=== PATIENT | female | born 1965 | race Caucasian/White ===

== ENCOUNTER 2020-06-25 14:47 | Outpatient (REF) | payer BC, SELFPAY ==
[2020-06-25 19:17] LABS: Abs Immature Grans 0.01 10^3/uL (0.0-0.06); Absolute Basophil Count 0.08 10^3/uL (0.0-0.2); Absolute Eosinophil Count 0.19 10^3/uL (0.0-0.7); Absolute Lymphocyte Count 1.57 10^3/uL (1.2-3.4); Absolute Monocyte Count 0.58 10^3/uL (0.1-0.8); Absolute Neutrophil Count 4.29 10^3/uL (1.2-6.7); Basophils % 1.2; Eosinophils % 2.8; HCT 41.3 % (36.0-46.0); Immature Grans % 0.1; Lymphocytes % 23.4; MCH 30.5 pg (27.0-33.0); MCHC 33.9 % (32.0-36.0); Monocytes % 8.6; Neutrophils % 63.9; Nucleated RBC 0 %; Platelet Count 453 10^3/uL (130-400); RBC 4.59 10^6/uL (3.93-5.22); RDW-SD 39.1 fL; WBC 6.72 10^3/uL (4.4-10.8)
[2020-06-25 19:49] LABS: ALT 46 U/L (14-59); AST 20 U/L (15-37); Albumin 4.1 g/dL (3.4-5.0); Alkaline Phosphatase 100 U/L (46-116); Anion Gap 7.4 mmol/L (3-11); BUN 21 mg/dL (7-18); Bilirubin, Total 0.4 mg/dL (0.2-1.0); CO2 27.6 mmol/L (21.0-32.0); CREATININE 0.74 mg/dL (0.55-1.02); Calcium 9.1 mg/dL (8.5-10.1); Calculated LDL 189 mg/dL (<100); Chloride 102 mmol/L (98-107); Cholesterol 283 mg/dL (<200); Glucose 100 mg/dL (74-106); HDL Cholesterol 31 mg/dL (40-60); Potassium 4.6 mmol/L (3.5-5.1); Sodium 137 mmol/L (136-145); TSH (W/Ref FT4) 1.95 uIU/mL (0.36-3.74); Total Protein 7.9 g/dL (6.4-8.2); Triglyceride 318 mg/dL (<150)
== END 2020-06-25 15:07 ==
LOC: NCHCN 14:47
PROVIDERS: Visit Provider Physician Assistant
DX: E78.5 Hyperlipidemia, unspecified (principal); E03.9 Hypothyroidism, unspecified; I10 Essential (primary) hypertension
CPT/HCPCS: 80053; 80061; 84443; 85025

== ENCOUNTER 2021-09-03 11:35 | Outpatient (REF) | payer BC, SELFPAY ==
--- NOTE | 2021-09-03 15:55 | PAPFT_PTH ---
PATIENT: [place] Sarabia LOC: [facility] [id number] AGE/SX: 56/F ROOM: RE09/03/[address]: Dolores Lay : 1965 BED: DIS: 09/03/2021 SPEC #: [id number] RECD: 09/04/21 12:39 STATUS: RAFA REQ #: [id number] DAVID: 09/03/21 15:[address]: Dolores Lay DEPT: [facility] Cytology RECD BY: Lynne Melendez Tissues: 1 - CX/ENDOCX FOR PAP SMEARS Procedures: PAP THIN PREP/UVM Screening HPV DNA PROBE Comments: [id number]
== END 2021-09-03 11:36 | disposition home or self-care (01) ==
LOC: NCHCN 11:35
PROVIDERS: Visit Provider Physician Assistant
DX: Z12.4 Encounter for screening for malignant neoplasm of cervix (principal); Z11.51 Encounter for screening for human papillomavirus (HPV)
CPT/HCPCS: 88142; 87624

== ENCOUNTER 2022-07-28 10:52 | Outpatient (REF) | payer BC, SELFPAY ==
[2022-07-28 19:10] LABS: Anion Gap 5.2 mmol/L (3-11); BUN 16 mg/dL (7-18); CO2 28.8 mmol/L (21.0-32.0); CREATININE 0.8 mg/dL (0.55-1.02); Calcium 8.8 mg/dL (8.5-10.1); Chloride 107 mmol/L (98-107); Estimated GFR 86.96 (mL/min/1.73m2); Glucose 105 mg/dL (74-106); Potassium 4.6 mmol/L (3.5-5.1); Sodium 141 mmol/L (136-145); TSH (W/Ref FT4) 0.62 uIU/mL (0.36-3.74)
== END 2022-07-28 10:53 | disposition home or self-care (01) ==
LOC: NCHCN 10:52
PROVIDERS: Visit Provider Physician Assistant
DX: I10 Essential (primary) hypertension (principal); E03.9 Hypothyroidism, unspecified
CPT/HCPCS: 80048; 84443

== ENCOUNTER 2023-01-27 14:43 | Inpatient (IN) | payer BC, SELFPAY ==
[2023-01-27] VITALS (35 sets, daily range): BP systolic 122–170; BP diastolic 77–98; PULSE 50–98; RESP 13–23; TEMP 36.6–36.9; O2SAT 96–100
--- NOTE | 2023-01-27 14:45 | RT.EKG_ITS ---
APPROVED REPORT Exam: Resting ECG Reason for Exam: chest pain Patient Location: E HR:62 bpm ECG Measurements Heart Rate 62 AXIS NE 49 P 53 QRSd 110 QRS 16 QT 390 T 3 QTc 396 Conclusion Sinus rhythm...normal P axis, V-rate 60- 99 Probable lateral infarct, old...Q>35mS, abnormal ST-T, V5-6 I aVL Physician: no stemi
--- NOTE | 2023-01-27 14:45 | DI.CT_ITS ---
Exam(s) CT BRAIN NECK CTA EXAM: CT BRAIN NECK CTA CLINICAL HISTORY: atypical stroke like sympt. right facial droop. TECHNIQUE: Imaging Protocol: Axial CT angiography was performed with multi-slice acquisition and mu lti-planar and/or 3D reconstructions. CONTRAST MATERIAL: Intravenous: Omnipaque 350 Contrast volume:structured data in ml COMPARISON: No exams were available for comparison FINDINGS: CTA Neck W: Aortic arch anatomy: The aortic arch anatomy is conventional and there is no significant stenosis at the origin of the great vessels off of the aortic arch. No intimal flap evident. Anterior circulation: Both common carotid arteries ascend with normal luminal diameters. The left common carotid artery is tortuous just beyond its origin but without significant stenosis. Above this level the common carot id arteries ascend with normal luminal diameters in both sides the neck. There is no significant owen nosis at the carotid bifurcations and proximal internal carotid arteries. Both internal carotid soy donald are patent in the upper neck and skull base. Posterior circulation: Both vertebral arteries originate in conventional fashion off of the subclavian arteries and there is no obvious stenosis at the origin of the vertebral arteries. The left vertebral artery is dominant with luminal diameter of 4 millimeters in the foramen transvers e area. Luminal diameter of the right vertebral artery is 3 millimeters. No evidence of intralumina l thrombus nor dissection within the vertebral arteries in the neck Both vertebral arteries contribute to the formation of the basilar artery at the skull base. CTA Brain W: Anterior circulation: Both internal carotid arteries are patent in the skull base-carotid canals as well as within the cave rnous sinuses. The supraclinoid aspects of the ICAs are patent. Both A1 segments are patent as are the anterior cer ebral arteries and there is no evidence of aneurysm at the level of the anterior communicating artery . Both middle cerebral arteries are patent with no evidence of significant stenosis nor intraluminal th rombus. There also no aneurysms of these vessels. Posterior circulation: The basilar artery ascends in the midline. Distally it gives off patent bilateral superior cerebella r arteries. Above this level the basilar artery terminates as patent bilateral posterior cerebral arteries. There is a thin posterior communicating artery evident on the right side of the frczyx-wi-Eorvqn. There is no evidence of aneurysm at the tip of the basilar artery nor elsewhere in the obbxdx-ox-Irdh is. CT BRAIN: There is no evidence of intracranial hemorrhage, mass effect, or shift of midline structures. There are no extra-axial fluid collections. Ventricles are not enlarged or shifted. There are no ring enh ancing lesions in the brain and no abnormal meningeal enhancement. IMPRESSION: 1. Patent carotid arteries in the neck. No hemodynamically significant stenosis. 2. Patent vertebral arteries. Left vertebral artery is dominant. 3. Patent intracranial arteries. 4. No acute intracranial findings. No evidence of intracranial hemorrhage. No ring enhancing lesion s nor abnormal meningeal enhancement. Called to ER physician. RADIATION DOSE DELIVERED: 2,003.43mGy.cm Total DLP DATA REPOSITORY: All CT scans at this facility are submitted to the National Radiology Data Registry (NRDR) Dose Index Registry (DIR) with the [employer] (ACR). RADIATION OPTIMIZATION: All CT scans at this facility use at least one of these dose optimization te chniques: automated exposure control; mA and/or kV adjustment per patient size (includes targeted exa ms where dose is matched to clinical indication); or iterative reconstruction.
--- NOTE | 2023-01-27 14:58 | ED.GENADUL_ITS ---
Discharge Plan Discharge Details Chief Complaint: CVA/TIA Primary Care Provider: Unknown,Unknown ED Provider: Marcelo Ramirez Home Meds and New Rx's Prescriptions: No Action metoprolol succinate 100 mg tablet extended release 24 hr 100 mg PO DAILY Patient Comments: TAKE ONE TABLET BY MOUTH EVERY DAY losartan 25 mg tablet 25 mg PO DAILY Patient Comments: TAKE ONE TABLET BY MOUTH EVERY DAY omeprazole 20 mg capsule,delayed release(DR/EC) 20 mg PO TID Patient Comments: TAKE ONE CAPSULE BY MOUTH EVERY DAY THIRTY MINUTES BEFORE EATING levothyroxine 112 mcg tablet 112 mcg PO DAILY Patient Comments: TAKE ONE TABLET BY MOUTH EVERY DAY Medical Decision Making 58-year-old female with a past medical history of hypertension, previous Graves' disease with subsequent ablation and now hypothyroid, family history of stroke, with no other significant past medical history who presents today for evaluation of atypical facial symptoms. Patient states that over the last day or so she has had a mild headache in the back of her head. And then this morning at around 7 AM she noticed facial asymmetry and her left eye was closed. However because she went to work she went to work and continued with the symptoms throughout the day. Significant other recommended she came in later in the day, which she finally has. She has also noticed over the last few weeks that she has had increased shaking in her left hand, as well as tongue numbness for the last week as well. She denies any falls or trauma. She denies any fever or chills. She denies any numbness or tingling. She denies any vision changes in general. She denies any difficulty formulating speech, but because of the tongue numbness and the facial changes she has had challenge articulating. She has no history of any tick bites this year, no history of Lyme disease. No trauma. No personal or family history of MS or myasthenia gravis. She denies any history of stroke or heart attack. She has a family history positive for strokes. No new medications. No other complaints at this time. No other modifying factors. Physical exam is very interesting. Patient demonstrates facial droop of the right face, right brow, but no droop of the right eyelid. Right eyelid is functioning normally. Left side of the face demonstrates no droop for the forehead or face, however the left eyelid is notably contracted intense as if it is continually trying to close. No tearing of either eye. Normal sensation on both sides of the face. Tongue comes out midline and demonstrates normal movement. Patient is unable to form the movements for straw or to spit. Uncertain as to what the exact etiology is. Symptoms appear inconsistent with myasthenia gravis, MS is on the differential. Lyme, or an atypical Ugarte's palsy is on the differential. Stroke, small mass, or bleed could potentially elicit symptoms like this. We will get a CT/CTA, reach out to Dr. Herrera of neurology, monitor closely and reassess. Patient is certainly out of the window for tPA at this time as the patient symptom onset was at minimum 8 hours ago I did speak with Dr. Herrera, and she does recommend MRI which we will order as well. Differential also includes Pancoast tumor potentially but she would like us to start with neuroimaging. Patient will be signed out to my colleague Dr. Jamal Seth for follow-up on labs and imaging. HPI General Date/Time Provider Initiated Documentation: 01/27/23 14:44 . HPI Narrative: 58-year-old female with a past medical history of hypertension, previous Graves' disease with subsequent ablation and now hypothyroid, family history of stroke, with no other significant past medical history who presents today for evaluation of atypical facial symptoms. Patient states that over the last day or so she has had a mild headache in the back of her head. And then this morning at around 7 AM she noticed facial asymmetry and her left eye was closed. However because she went to work she went to work and continued with the symptoms throughout the day. Significant other recommended she came in later in the day, which she finally has. She has also noticed over the last few weeks that she has had increased shaking in her left hand, as well as tongue num bness for the last week as well. She denies any falls or trauma. She denies any fever or chills. She denies any numbness or tingling. She denies any vision changes in general. She denies any difficulty formulating speech, but because of the tongue numbness and the facial changes she has had challenge articulating. She has no history of any tick bites this year, no history of Lyme disease. No trauma. No personal or family history of MS or myasthenia gravis. She denies any history of stroke or heart attack. She has a family history positive for strokes. No new medications. No other complaints at this time. No other modifying factors. Related Data Home Medications Medication Instructions Recorded Confirmed levothyroxine 112 mcg tablet 112 mcg PO DAILY 01/27/23 01/27/23 losartan 25 mg tablet 25 mg PO DAILY 01/27/23 01/27/23 metoprolol succinate 100 mg 100 mg PO DAILY 01/27/23 01/27/23 tablet,extended release 24 hr omeprazole 20 mg capsule,delayed 20 mg PO TID 01/27/23 01/27/23 release Allergies Allergy/AdvReac Type Severity Reaction Status Date / Time No Known Allergies Allergy Unverified 01/27/23 15:01 Review of Systems All systems reviewed & are unremarkable except as noted in HPI and below PFSH Social History Smoking/Tobacco Use Status: Never Smoking risk assessment performed?: Yes Alcohol Intake: never Substance use type: does not use Exam Narrative Exam Narrative: 1.Const: Well-nourished, Well-developed, appearing stated age 2.Eyes: PERRL, no conjunctival injection, please see neurology 3.ENT: Atraumatic external nose and ears. Moist MM. Neck: Symmetric, trachea midline, No thyromegaly. Patient demonstrates good movement of cervical neck. There is no nuchal rigidity, no nuchal tenderness. Patient is able to flex the neck without any difficulty or significant pain. Negative Kernig's and Brudzinski sign. 4.CVS: +S1/S2, No murmurs or gallops. Peripheral pulses 2+ and equal in all extremities. Brisk capillary refill in all extremities. 5.RESP: Unlabored respiratory effort. Clear to auscultation bilaterally. No wheezes rales or rhonchi 6.GI: Soft, Nontender/Nondistended, No hepatosplenomegaly. No guarding or rebound. 7.MSK: Normocephalic/Atraumatic, Extremities w/o deformity or ttp No cyanosis or clubbing, Normal movement of all extremities. Slight tremor in the left upper extremity. 8.Skin: Warm, Dry. No rashes or lesions. No rash. No evidence of shingles. 9.Neuro: All 6 cardinal planes of vision are fully intact in both eyes if you are able to hold up the eyelid on the left. No evidence of rotatory or vertical nystagmus. The patient demonstrated a normal ekwlhl-owcs-uazsvw, good dexterity. There was no evidence of dysdiadochokinesia. Patient was able to ambulate without difficulty. There was no wide-based gait. Romberg testing was normal. Xtfz-sr-vtdn testing was normal. Sensation was intact bilaterally as well as muscle strength bilaterally for all extremities. Patient was able to verbalize butter cup with no slurring, or miss pronunciation. Patient demonstrates facial droop of the right face, right brow, but no droop of the right eyelid. Right eyelid is functioning normally. Left side of the face demonstrates no droop for the forehead or face, however the left eyelid is notably contracted intense as if it is continually trying to close. No tearing of either eye. Normal sensation on both sides of the face. Tongue comes out midline and demonstrates normal movement. Patient is unable to form the movements for straw or to spit. 10.Psych: (AAO) x3. Appropriate mood and affect
--- OUTSIDE RECORDS SUMMARY | 2023-01-27 15:06 | XMS_ITS | Continuity of Care Document ---
Author Name Unknown Organization [facility] Address [address] [place] [address] Care Team Providers Care General Forecaster Name Role Phone Dolores Lay Primary Care Physician Encounter [facility] Date(s): 10/26/22 - 10/26/[address] [id number] Discharge Disposition: Home or Self Care Attending Physician: Dolores Lay PA-C Admitting Physician: Dolores Lay PA-C Referring Physician: Dolores Lay PA-C Allergies, Adverse Reactions, Alerts No Known Medication Allergies Substance Reaction Severity Status lisinopril Unknown Active Immunizations Given and Recorded Vaccine Date Status Refusal Reason SARS-CoV-2 (COVID-19) mRNA-1273 vaccine 02/24/21 R ecorded SARS-CoV-2 (COVID-19) mRNA-1273 vaccine 01/27/21 R ecorded influenza virus vaccine, live 08/25/19 Recorded influenza virus vaccine, inactivated 08/15/14 Foster rded influenza virus vaccine, inactivated 08/09/13 Foster rded influenza virus vaccine, inactivated 08/13/05 Foster rded tetanus/diphth/pertuss (Tdap) adult/adol 08/05/11 Recorded tetanus-diphth toxoids (Td) adult/adol 07/18/05 Re corded Social History Social History Type Response Sex Female Patient Care team information Personnel Name: Dolores Lay PA-C Address: Address: [address] [address]- [place]
[2023-01-27 15:16] LABS: Abs Immature Grans 0.02 10^3/uL (0.0-0.06); Absolute Basophil Count 0.03 10^3/uL (0.0-0.2); Absolute Eosinophil Count 0.05 10^3/uL (0.0-0.7); Absolute Lymphocyte Count 1.63 10^3/uL (1.2-3.4); Absolute Monocyte Count 0.35 10^3/uL (0.1-0.8); Absolute Neutrophil Count 3.89 10^3/uL (1.2-6.7); Basophils % 0.5; Eosinophils % 0.8; HGB 12.7 g/dL (11.2-15.7); Immature Grans % 0.3; Lymphocytes % 27.3; MCH 30.1 pg (27.0-33.0); MCHC 34.3 % (32.0-36.0); MCV 88 fL (80-95); MPV 9.4 fL (8.0-11.0); Monocytes % 5.9; Neutrophils % 65.2; Platelet Count 445 10^3/uL (130-400); RBC 4.22 10^6/uL (3.93-5.22); RDW 11.8 % (11.7-14.6); RDW-SD 37.9 fL; WBC 5.97 10^3/uL (4.4-10.8)
[2023-01-27 15:17] LABS: ESR 12 mm/hr (0-30)
--- NOTE | 2023-01-27 15:29 | DI.MRI_ITS ---
Exam(s) MR BRAIN WO EXAM: MR BRAIN WO CLINICAL HISTORY: right and left facial symptoms TECHNIQUE: Multiplanar multisequence MRI of the brain was performed. COMPARISON: CTA earlier today. FINDINGS: CEREBRAL PARENCHYMA: There is no evidence of intracranial hemorrhage, mass effect, or shift of midline structures. There are no extra-axial fluid collections. Ventricles are not enlarged or shifted. There is no significant focal signal abnormality in the cerebellar hemispheres nor within the alfonso, m idbrain, and thalami. There is no abnormal signal abnormality in the periventricular white matter. There is no significant focal signal abnormality evident on diffusion imaging to suggest acute ischem ic event. SWI: NO EVIDENCE OF MICROHEMORRHAGES. PITUITARY GLAND: No mass nor parasellar abnormality. No obvious abnormality in the cavernous sinuses. FLOW VOIDS: The expected flow void are noted. No evidence of obvious aneurysm nor obvious vascular ma lformation. PARANASAL SINUSES: The visualized paranasal sinuses appear unremarkable. No obvious finding ORBITS: No obvious findings. IMPRESSION: No significant acute intracranial findings on this noninfused MRI scan of the brain. Report called by myself to ER physician. DATA REPOSITORY:
[2023-01-27 15:39] LABS: ALT 41 U/L (14-59); AST 18 U/L (15-37); Albumin 3.7 g/dL (3.4-5.0); Alkaline Phosphatase 84 U/L (46-116); Anion Gap 6.6 mmol/L (3-11); BUN 17 mg/dL (7-18); Bilirubin, Total 0.3 mg/dL (0.2-1.0); C-Reactive Protein 0.11 mg/dL (0.0-0.3); CO2 26.4 mmol/L (21.0-32.0); Calcium 8.8 mg/dL (8.5-10.1); Chloride 109 mmol/L (98-107); Estimated GFR 66.12 (mL/min/1.73m2); Glucose 127 mg/dL (74-106); Potassium 3.7 mmol/L (3.5-5.1); Sodium 142 mmol/L (136-145); TSH (W/Ref FT4) 6.23 uIU/mL (0.36-3.74); Total Protein 7.8 g/dL (6.4-8.2)
[2023-01-27] MEDS: Normal Saline - Diluent 50 ML VIAL IJ (15:46)
[2023-01-27] MEDS: Omnipaque 350 MG/ML 500 ML BTL-Imaging package 100 ML IJ (15:47)
[2023-01-27 15:56] LABS: FREE T4 0.95 ng/dL (0.76-1.46)
[2023-01-27] MEDS: Normal Saline 500 ML IV (16:19)
[2023-01-27] MEDS: LORazepam 2 MG/ML VIAL (16:28)
--- NOTE | 2023-01-27 16:54 | NCONE_ITS ---
Date of service: 01/27/23 Time of Service: 16:54 Assessment and Plan Assessment and plan (1) Multiple cranial nerve palsies: Status: Acute Assessment and plan: Ms. Sarabia presents with 1-2 days of neck stiffness and headache, waking up this am with R Ugarte's palsy (R CN VII) and then later today developing a left ptosis, notable for pupil involvement (L CN III). She had question of L tongue deviation earlier (L CN XII) and on my exam has sensory disturbance in the face and thus also possible bilateral CN V involvement. Her neurological exam is otherwise unremarkable though limited as she was due for MRI testing. DDx for multiple cranial nerve palsies includes meningitis (particularly chronic meningitidies, Lyme, TB, syphilis, lymphoma/leukemia), vasculitis/mononeuropathy multiplex (Wegners, Sarcoid), and cavernous sinus thorombosis - the latter not fitting her clinical picture at this time. Given headache and neck stiffness, suspect a meningitis of which Lyme seems most likely. However, I recommend broad work-up at this time including: -MRI brain w/wo with thin cuts through the brainstem to look at the cranial nerves -Labs: MIGNON, EVANS, ANCA, CRP, TB, hepatitis panel, C3/C4, anti-GBM ab, RPR, HIV in addition to Lyme/Tick panel which is pending -LP with cell count, glucose, protein, cytology, VDRL, Lyme, TB, gram stain/cx; consider fungal culture if found to be immunocompromised Given high likelihood of Lyme, would preemptively treat. Depending on if we call this acute or late neurological manifestations, treatment is different. Would defer to primary team, but IV ceftriaxone seems reasonable to start. She will need lubricating eye drops to the right eye prn during the day. She will need to tape right eye shut when sleeping until she can fully close it. Lubricating gel HS. History of Present Illness History of Present Illness Chief Complaint: face weakness Narrative: Handedness: right. Ms. Sarabia is a 58 year-old with hypertension, hyperlipidemia, prior thyroid storm s/p thyroidectomy, GERD, bilateral carpal tunnel, prior cervical/lumbar radiculopathies. Yesterday, she noted a stiff neck throughout the day. This am, she awoke noting that her face felt funny. She has numbness around her mouth and when she tried to drink, fluids went out the right side of her mouth. She went to work and sometime while at work, her L eye started dropping such that she can no longer keep it open. She has had a mild headache all day. She has no prior history of face weakness. Denies any tick bites. Work-up: -CTH (01/27/23): Unremarkable. I reviewed these images personally and this is my personal interpretation. -CTA head/neck (01/27/23): unremarkable. I reviewed these images personally and this is my personal interpretation. -Labs: Plt 445, ESR 12, CMP ok, TSH 6.23, FT4 0.95; Tick/Lyme pending Review of Systems All systems reviewed & are unremarkable except as noted in HPI and below PFSH All Active Problems (Updated 01/27/23 @ 19:03 by Stalin Juan) Adult hypothyroidism (Acute) HTN (hypertension) (Chronic) Multiple cranial nerve palsies (Acute) Social History Smoking/Tobacco Use Status: Never Smoking risk assessment performed?: Yes Alcohol Intake: never Substance use type: does not use Visit Medication and Allergies Active Medications Generic Name Dose Route Start Last Admin Trade Name Freq PRN Reason Stop Dose Admin Iohexol 100 ml 01/27/23 16:00 01/27/23 15:47 Omnipaque 350 Mg/Ml 500 Ml Btl-Imaging Package IJ 02/26/23 23:59 100 ml DIRECTED MICHAEL Administration Sodium Chloride 50 ml 01/27/23 16:00 01/27/23 15:46 Normal Saline - Diluent 50 Ml Vial IJ 50 ml .FOR DI USE MICHAEL Administration Allergies No Known Allergies Allergy (Unverified 01/27/23 15:01) Exam Narrative Exam Narrative: Physical Exam: Gen: Patient of apparent stated age, NAD Head and face: no facial or cranial abnormalities Neck: Supple, no meningismus, no occipital tenderness CV: + S1, S2, RRR, no murmur Resp: CTA B/L Abd: soft, nontender, nondistended Ext: No edema. No clubbing or cyanosis. No bony deformity. Neuro Exam: Language: fluency, naming, repetition, and comprehension intact; Mental Status: AAOx3, current events intact, fund of knowledge intact; Speech: no dysarthria Cranial nerves: Funduscopy: not performed CN II: visual burns intact CN III, IV, : L eye down, no nystagmus, L pupil fixed mid and non-reactive CN V: decreased PP in L V1 and bilateral V3 CN VII: R upper and lower face weakness; L ptosis CN VIII: hearing intact bilaterally CN IX, X: palate rises symmetrically CN XI: trapezius/SCM 5/5 bilaterally CN XII: protrudes tongue symmetrically Sensory: intact to PP in all extremities Motor: bulk and tone intact. Fine motor movements intact bilaterally. No pronator drift. Strength 5/5 throughout including the deltoids, biceps, triceps, wrist extensors, hip flexors, knee flexors, knee extensors, ankle flexors, and ankle extensors. Near constant LUE resting tremor with int ermittent LLE tremor. Reflexes: 2+/brisk at the biceps, triceps, brachioradialis, patella, and R achilles tendon; reduced L achilles reflex; toes down going bilaterally; neg Landry/Tromner Coordination: FTN and HTS intact bilaterally Gait: not tested Results Last Vital Signs Temp 98.2 F 01/27/23 14:59 Pulse 55 L 01/27/23 16:10 Resp 13 01/27/23 15:20 BP 142/80 H 01/27/23 16:10 Pulse Ox 97 01/27/23 16:11 Labs 01/27/23 15:05 01/27/23 15:05 Labs: Laboratory Results - last 24 hr 01/27/23 01/27/23 01/27/23 15:05 15:05 15:05 WBC 5.97 RBC 4.22 Hgb 12.7 Hct 37.0 MCV 88 MCH 30.1 MCHC 34.3 RDW 11.8 Plt Count 445 H MPV 9.4 Immature Gran % 0.3 Neutrophils % 65.2 Lymphocytes % 27.3 Monocytes % 5.9 Eosinophils % 0.8 Basophils % 0.5 Nucleated RBC % 0.0 Absolute Neutrophils 3.89 Absolute Lymphocytes 1.63 Absolute Monocytes 0.35 Absolute Eosinophils 0.05 Absolute Basophils 0.03 ESR 12 Sodium 142 Potassium 3.7 Chloride 109 H Carbon Dioxide 26.4 Anion Gap 6.6 BUN 17 Creatinine 1.0 Est GFR (CKD-EPI 2020) 66.12 Glucose 127 H Calcium 8.8 Total Bilirubin 0.3 AST 18 ALT 41 Alkaline Phosphatase 84 C-Reactive Protein 0.11 Total Protein 7.8 Albumin 3.7 TSH 6.23 H Free T4 0.95
[2023-01-27] MEDS: cefTRIAXone 2 GM/50 ML BAG IVPB (18:26)
--- NOTE | 2023-01-27 18:49 | W.PM.HP.N ---
Date of service: 01/27/23 Time of Service: 18:49 Assessment and Plan Assessment and plan (1) Multiple cranial nerve palsies: Start date: 01/27/23 Status: Acute Assessment and plan: This is a 58-year-old lady who had stuttering neurological symptoms including headache and stiff neck with left hand tremor during several days prior to presentation but then mostly cranial nerve deficits with cranial nerve VII palsy persistent at my exam. She also had evidence of cranial nerve V and III involvement by earlier exam with neurology. Because of the multiplicity of cranial nerve involvement and presentation the patient being treated for possible tertiary Lyme disease with Rocephin 2 g IV daily. She did have LP performed which will have testing and neurology will follow-up patient in the morning. Presently she appears stable. Her right eye is patched because it would not close. Imaging was unrevealing for acute processes or stroke. (2) HTN (hypertension): Status: Chronic Assessment and plan: Continue outpatient medical regimen with adjustment as needed. (3) Adult hypothyroidism: Status: Chronic Assessment and plan: Continue outpatient supplement and follow-up TSH. History of Present Illness History of Present Illness Chief Complaint: Headache and neck stiffness with left hand tremor and facial asymmetry Narrative: This is a 58-year-old female patient with a past history of hypertension and Graves' disease on thyroid supplementation who presented to the ED with a sudden onset of right facial drooping with her right eyelid not closing but her left eyelid not being able to open. She states that she had no headache and she did attempt to go to work but continued to have symptoms prompting her to come to the ED for evaluation. There is a family history of CVAs and the patient was evaluated in the ED by neurology who did a full evaluation. See neurology consultation. Patient also had a history of 1 week with her left hand having increased shaking and tongue numbness. She had no other focal neurological complaints. At the time I saw the patient was able to open her left eye but her right face had decreased wrinkling of her forehead with upper gaze and right eyelid would not closed with a eye patch along with a right facial droop Reviewing the neurology consultation note the patient did state that she had neck stiffness and headache for 1 to 2 days when interviewed by Dr. Herrera. The did notice left ptosis with notable pupil involvement which revealed cranial nerve III and stated that there was a question of left tongue deviation earlier which would be cranial nerve VII. Her exam also involved facial sensory disturbance would be cranial nerve V. As stated when I saw the patient she was mostly manifesting a Ugarte's palsy which is cranial nerve VII peripheral involvement with her eye patch because I would not close and right facial muscle decreased function over the entire face. Patient was admitted for IV Rocephin treatment for possible Lyme disease while gathering further information with an LP performed by Dr. Del Angel prior to admission. Review of Systems Narrative: 13 point review of systems otherwise unrevealing or stable. PFSH All Active Problems (Updated 01/28/23 @ 00:34 by Stalin Juan) Adult hypothyroidism (Chronic) HTN (hypertension) (Chronic) Multiple cranial nerve palsies (Acute) Social History Smoking/Tobacco Use Status: Never Smoking risk assessment performed?: Yes Alcohol Intake: never Substance use type: does not use Meds Allergies and Home Medications Allergies Allergy/AdvReac Type Severity Reaction Status Date / Time No Known Allergies Allergy Unverified 01/27/23 15:01 Home Medications Medication Instructions Recorded Confirmed Type levothyroxine 112 mcg tablet 112 mcg PO DAILY 01/27/23 01/27/23 History losartan 25 mg tablet 25 mg PO DAILY 01/27/23 01/27/23 History metoprolol succinate 100 mg 100 mg PO DAILY 01/27/23 01/27/23 History tablet,extended release 24 hr omeprazole 20 mg capsule,delayed 20 mg PO HS 01/27/23 01/27/23 History release Exam Narrative Exam Narrative: General: Patient appears appropriate for age, alert and oriented x3 and in no acute distress. She is moderately obese. HEENT: Normocephalic, eyes with pupils appear to be equal and reactive to light at the time of my exam with sclera anicteric but there is persistent peripheral cranial nerve VII palsy with decreased muscle function over the entire right face including right facial droop, left eye appears to function normal with the lids blinking voluntarily. Tongue protrudes midline. Oropharynx with moist mucosa and normal dentition. Neck: Supple without JVD. No auscultated carotid bruits. Back: Normal posture without CVA tenderness. Lungs: Clear to oxygen percussion with no focalizing rales or rhonchi. Normal inspiratory to expiratory phase ratio and no expiratory wheeze. Breast: Exam deferred. Heart: Regular rate and rhythm with no murmurs or gallops appreciated. Abdomen: Obese contour, soft and nontender to palpation with no palpable hepatosplenomegaly. Bowel sounds positive in all quadrants. Due to/rectal: Exam deferred. Extremity: Without clubbing, cyanosis or pitting edema. Peripheral pulses intact. All joints have fair range of motion and no swelling. Skin: Normal color, warm and dry. Neuro: Cranial nerves II through XII with cranial nerve VII motor deficit which appears to be peripheral as Ugarte's palsy on the right otherwise exam appears intact at this time with description of dysfunction under neurology consultation. Psych: Normal mood and affect. Remote and recent memory intact. No abnormal thought processes. Results Imaging Imaging Studies: Patient Name: Shyann Sarabia Unit #: [id number] Loc: ER ? Ordering Provider:? Marcelo Ramirez DO Status: REG ER ? Primary Care Provider: Unknown,Unknown Date of Exam: 01/27/23 Sex: F ? Admission Date: 01/27/23? : 1965 ? Age: 58 ? Exam(s) MR BRAIN WO EXAM: ? MR BRAIN WO CLINICAL HISTORY:? right and left facial symptoms TECHNIQUE:? Multiplanar multisequence MRI of the brain was performed. COMPARISON:? CTA? earlier today.? FINDINGS: CEREBRAL PARENCHYMA: There is no evidence of intracranial hemorrhage, mass effect, or shift of midline structures.? There are no extra-axial fluid collections.? Ventricles are not enlarged or shifted. There is no significant focal signal abnormality in the cerebellar hemispheres nor within the alfonso, midbrain, and thalami. There is no abnormal signal abnormality in the periventricular white matter. There is no significant focal signal abnormality evident on diffusion imaging to suggest acute ischemic event. SWI: NO EVIDENCE OF MICROHEMORRHAGES. PITUITARY GLAND: No mass nor parasellar abnormality. No obvious abnormality in the cavernous sinuses. FLOW VOIDS: The expected flow void are noted. No evidence of obvious aneurysm nor obvious vascular malformation. PARANASAL SINUSES: The visualized paranasal sinuses appear unremarkable. No obvious finding ORBITS: No obvious findings. IMPRESSION: No significant acute intracranial findings on this noninfused MRI scan of the brain. Exam(s) CT BRAIN ? NECK CTA EXAM: ? CT BRAIN ? NECK CTA CLINICAL HISTORY: ? atypical stroke like sympt. right facial droop. ? TECHNIQUE:? Imaging Protocol:? Axial CT angiography was performed with multi-slice acquisition and multi-planar and/or 3D reconstructions. CONTRAST MATERIAL:? Intravenous: Omnipaque 350 Contrast volume:structured data in ml COMPARISON:? No exams were available for comparison FINDINGS: CTA Neck W: Aortic arch anatomy: The aortic arch anatomy is conventional and there is no significant stenosis at the origin of the great vessels off of the aortic arch.? No intimal flap evident. Anterior circulation: Both common carotid arteries ascend with normal luminal diameters.? The left common carotid artery is tortuous just beyond its origin but without significant stenosis.? Above this level the common carotid arteries ascend with normal luminal diameters in both sides the neck.? There is no significant stenosis at the carotid bifurcations and proximal internal carotid arteries.? Both internal carotid arteries are patent in the upper neck and skull base. Posterior circulation: Both vertebral arteries originate in conventional fashion off of the subclavian arteries and there is no obvious stenosis at the origin of the vertebral arteries. The left vertebral artery is dominant with luminal diameter of 4 millimeters in the foramen transverse area.? Luminal diameter of the right vertebral artery is 3 millimeters.? No evidence of intraluminal thrombus nor dissection within the vertebral arteries in the neck Both vertebral arteries contribute to the formation of the basilar artery at the skull base. CTA Brain W: Anterior circulation: Both internal carotid arteries are patent in the skull base-carotid canals as well as within the cavernous sinuses. The supraclinoid aspects of the ICAs are patent.? Both A1 segments are patent as are the anterior cerebral arteries and there is no evidence of aneurysm at the level of the anterior communicating artery. Both middle cerebral arteries are patent with no evidence of significant stenosis nor intraluminal thrombus.? There also no aneurysms of these vessels. Posterior circulation: The basilar artery ascends in the midline.? Distally it gives off patent bilateral superior cerebellar arteries. Above this level the basilar artery terminates as patent bilateral posterior cerebral arteries. There is a thin posterior communicating artery evident on the right side of the [id number]. There is no evidence of aneurysm at the tip of the basilar artery nor elsewhere in the [id number]. CT BRAIN: There is no evidence of intracranial hemorrhage, mass effect, or shift of midline structures.? There are no extra-axial fluid collections.? Ventricles are not enlarged or shifted.? There are no ring enhancing lesions in the brain and no abnormal meningeal enhancement. IMPRESSION: 1. Patent carotid arteries in the neck.? No hemodynamically significant stenosis.? 2.? Patent vertebral arteries. Left vertebral artery is dominant. 3.? Patent intracranial arteries. 4. No acute intracranial findings.? No evidence of intracranial hemorrhage.? No ring enhancing lesions nor abnormal meningeal enhancement. Labs 01/27/23 15:05 01/27/23 15:05 Labs: Laboratory Results - last 24 hr 01/27/23 01/27/23 01/27/23 15:05 15:05 15:05 WBC 5.97 RBC 4.22 Hgb 12.7 Hct 37.0 MCV 88 MCH 30.1 MCHC 34.3 RDW 11.8 Plt Count 445 H MPV 9.4 Immature Gran % 0.3 Neutrophils % 65.2 Lymphocytes % 27.3 Monocytes % 5.9 Eosinophils % 0.8 Basophils % 0.5 Nucleated RBC % 0.0 Absolute Neutrophils 3.89 Absolute Lymphocytes 1.63 Absolute Monocytes 0.35 Absolute Eosinophils 0.05 Absolute Basophils 0.03 ESR 12 Sodium 142 Potassium 3.7 Chloride 109 H Carbon Dioxide 26.4 Anion Gap 6.6 BUN 17 Creatinine 1.0 Est GFR (CKD-EPI 2020) 66.12 Glucose 127 H Calcium 8.8 Total Bilirubin 0.3 AST 18 ALT 41 Alkaline Phosphatase 84 C-Reactive Protein 0.11 Total Protein 7.8 Albumin 3.7 TSH 6.23 H Free T4 0.95 Last Vital Signs Temp 36.8 C 01/27/23 14:59 Pulse 55 L 01/27/23 18:30 Resp 13 01/27/23 15:20 BP 138/83 01/27/23 18:30 Pulse Ox 100 01/27/23 18:31 Time Spent Time spent with Patient: >75 minutes Time was spent: preparing to see the patient(eg.review tests), obtaining and/or reviewing separately otained hiistory, ordering medications,tests, procedures, referring, communicating with other health skin care therapist, indepentently interpreting results and care coordination
--- NOTE | 2023-01-27 19:55 | PAPNONF_PTH ---
PATIENT: Santa Sarabia LOC: U#:[id number] AGE/SX: 58/F ROOM: 214 RE01/27/[address]: Stalin Juan : 1965 BED: A DIS: 01/29/2023 SPEC #: [id number] RECD: 01/28/23 12:55 STATUS: RAFA REQ #: [id number] DAVID: 01/27/23 19:[address]: Stalin Juan DEPT: [facility] Cytology RECD BY: Lynne Melendez ENTERED: 01/28/23 12:56 SP TYPE: JULIENNE HICKEY DR: Jaye Herrera MD Unknown,Unknown Tissues: 1 - BODY FLUID CYTO(NOT S/U/N/EM)[facility] Procedures: BODY FLUID CYTO(NOT SPU/UR/NIP/ENDOM)[facility] Comments: [id number] (REFRIGERATED)
[2023-01-27 20:07] LABS: Source Nasal/Nares
--- NOTE | 2023-01-27 20:35 | ED.PROG_ITS ---
Date of service: 01/27/23 Time of Service: 20:35 Medical Decision Making Care was signed out by Dr. Ramirez with plan to follow-up on MRI of the brain and neurology recommendations. MRI of the brain was interpreted by radiology as negative. Dr. Herrera evaluated the patient here in the emergency department I discussed the case with her. She recommends initiating treatment with ceftriaxone for potential Lyme disease. She recommends lumbar puncture be performed. Lumbar puncture was performed without complication. Please see procedure note. Plan for hospitalization. I called and spoke with Dr. Juan, discussed ED presentation and course, he will admit the patient. He understands CSF diagnos tics and additional labs pending at time of admission. Lab Data Lab results reviewed: Yes I reviewed the patient's lab results. Labs: Laboratory Tests Range/Units 01/27/23 01/27/23 01/27/23 15:05 15:05 15:05 WBC (4.4-10.8) 10^3/uL 5.97 RBC (3.93-5.22) 10^6/uL 4.22 Hgb (11.2-15.7) g/dL 12.7 Hct (36.0-46.0) % 37.0 MCV (80-95) fL 88 MCH (27.0-33.0) pg 30.1 MCHC (32.0-36.0) % 34.3 RDW (11.7-14.6) % 11.8 Plt Count (130-400) 10^3/uL 445 H MPV (8.0-11.0) fL 9.4 Immature Gran % 0.3 Neutrophils % 65.2 Lymphocytes % 27.3 Monocytes % 5.9 Eosinophils % 0.8 Basophils % 0.5 Nucleated RBC % (0.0-0.3) % 0.0 Absolute Neutrophils (1.2-6.7) 10^3/uL 3.89 Absolute Lymphocytes (1.2-3.4) 10^3/uL 1.63 Absolute Monocytes (0.1-0.8) 10^3/uL 0.35 Absolute Eosinophils (0.0-0.7) 10^3/uL 0.05 Absolute Basophils (0.0-0.2) 10^3/uL 0.03 ESR (0-30) mm/hr 12 Sodium (136-145) mmol/L 142 Potassium (3.5-5.1) mmol/L 3.7 Chloride (98-107) mmol/L 109 H Carbon Dioxide (21.0-32.0) mmol/L 26.4 Anion Gap (3-11) mmol/L 6.6 BUN (7-18) mg/dL 17 Creatinine (0.55-1.02) mg/dL 1.0 Est GFR (CKD-EPI 2020) (mL/min/1.73m2) 66.12 Glucose (74-106) mg/dL 127 H Calcium (8.5-10.1) mg/dL 8.8 Total Bilirubin (0.2-1.0) mg/dL 0.3 AST (15-37) U/L 18 ALT (14-59) U/L 41 Alkaline Phosphatase (46-116) U/L 84 C-Reactive Protein (0.0-0.3) mg/dL 0.11 Total Protein (6.4-8.2) g/dL 7.8 Albumin (3.4-5.0) g/dL 3.7 TSH (0.36-3.74) uIU/mL 6.23 H Free T4 (0.76-1.46) ng/dL 0.95 Procedures Lumbar Puncture Time Out Performed: Yes Patient Position: sitting upright/leaning forward Skin Prep: Povidone-Iodine 1% Local Anesthetic: Lidocaine 1% Amount of anesthesia used (mL): 4 Spinal Needle Gauge: 22G Interspace Used: L4-L5 Fluid Initially Obtained: clear Additional Comments: 6mL removed. Patient without complaint post procedure. Sign Out Sign Out Data: Sign Out Comment: Atypical neurologic symptoms, pending CT/CTA/MRI and reconsult with Juve Parryten Last updated by Marcelo Ramirez DO at 01/27/23 16:09 Discharge Plan Disposition Patient Disposition: Admit to [facility] Discharge Details Chief Complaint: CVA/TIA Clinical Impression: Cranial nerve palsy, multiple, Headache Admit Date/Time: 01/27/23 18:50 Admit Provider: Stalin Juan Attending Provider: Stalin Juan Primary Care Provider: Unknown,Unknown ED Provider: Jamal Seth
[2023-01-27 20:39] LABS: Glucose (CSF) 63 mg/dL (40-70); Total Protein (CSF) 59 mg/dL (15-45)
--- NOTE | 2023-01-27 20:43 | ED.PROG_ITS ---
Date of service: 01/27/23 Time of Service: 20:43 Medical Decision Making Care was signed out by Dr. Ramirez, please see his documentation regarding initial ED presentation and course. Plan at signout was to follow-up on MRI of the brain and neurology recommendations. MRI of the brain was interpreted by radiology: Negative for acute process. Patient was evaluated by Dr. Herrera, on-call neurologist, she recommends lumbar puncture be performed and additional diagnostic testing sent. She feels Lyme disease possible and agrees with initiating treatment. Plan to initiate treatment with ceftriaxone IV. Lumbar puncture was performed without complication. Please see procedure note. I spoke with Dr. Juan, on-call hospitalist, discussed ED presentation and course, he will admit the patient. Lab Data Lab results reviewed: Yes I reviewed the patient's lab results. Labs: Laboratory Tests Range/Units 01/27/23 01/27/23 01/27/23 15:05 15:05 15:05 WBC (4.4-10.8) 10^3/uL 5.97 RBC (3.93-5.22) 10^6/uL 4.22 Hgb (11.2-15.7) g/dL 12.7 Hct (36.0-46.0) % 37.0 MCV (80-95) fL 88 MCH (27.0-33.0) pg 30.1 MCHC (32.0-36.0) % 34.3 RDW (11.7-14.6) % 11.8 Plt Count (130-400) 10^3/uL 445 H MPV (8.0-11.0) fL 9.4 Immature Gran % 0.3 Neutrophils % 65.2 Lymphocytes % 27.3 Monocytes % 5.9 Eosinophils % 0.8 Basophils % 0.5 Nucleated RBC % (0.0-0.3) % 0.0 Absolute Neutrophils (1.2-6.7) 10^3/uL 3.89 Absolute Lymphocytes (1.2-3.4) 10^3/uL 1.63 Absolute Monocytes (0.1-0.8) 10^3/uL 0.35 Absolute Eosinophils (0.0-0.7) 10^3/uL 0.05 Absolute Basophils (0.0-0.2) 10^3/uL 0.03 ESR (0-30) mm/hr 12 Sodium (136-145) mmol/L 142 Potassium (3.5-5.1) mmol/L 3.7 Chloride (98-107) mmol/L 109 H Carbon Dioxide (21.0-32.0) mmol/L 26.4 Anion Gap (3-11) mmol/L 6.6 BUN (7-18) mg/dL 17 Creatinine (0.55-1.02) mg/dL 1.0 Est GFR (CKD-EPI 2020) (mL/min/1.73m2) 66.12 Glucose (74-106) mg/dL 127 H Calcium (8.5-10.1) mg/dL 8.8 Total Bilirubin (0.2-1.0) mg/dL 0.3 AST (15-37) U/L 18 ALT (14-59) U/L 41 Alkaline Phosphatase (46-116) U/L 84 C-Reactive Protein (0.0-0.3) mg/dL 0.11 Total Protein (6.4-8.2) g/dL 7.8 Albumin (3.4-5.0) g/dL 3.7 TSH (0.36-3.74) uIU/mL 6.23 H Free T4 (0.76-1.46) ng/dL 0.95 Procedures Lumbar Puncture Time Out Performed: Yes Patient Position: sitting upright/leaning forward Skin Prep: Povidone-Iodine 1% Local Anesthetic: Lidocaine 1% Amount of anesthesia used (mL): 4 Spinal Needle Gauge: 22G Interspace Used: L4-L5 Fluid Initially Obtained: clear Complications: none Additional Comments: Patient tolerated well. No complaint postprocedure Sign Out Sign Out Data: Sign Out Comment: Atypical neurologic symptoms, pending CT/CTA/MRI and reconsult with [place]aten Last updated by Marcelo Ramirez DO at 01/27/23 16:09 Discharge Plan Disposition Patient Disposition: Admit to [facility] Condition: Serious Discharge Details Clinical Impression: Cranial nerve palsy, multiple, Headache Admit Date/Time: 01/27/23 18:50 Admit Provider: Stalin Juan Attending Provider: Stalin Juan Primary Care Provider: Unknown,Unknown ED Provider: Jamal Seth
[2023-01-27 20:52] LABS: COVID-19 PCR Negative (Negative)
[2023-01-27 20:58] LABS: Clarity Clear; Tube # 4; WBC 0 /uL (0-5); Xanthochromia Absent
[2023-01-27 20:59] LABS: Differential CSF: Performed; Lymphocytes CSF 2 % (40-80); Monocyte/Macrophage CSF 0 % (15-45); Neutrophils CSF 0 % (0-6); Other Cells CSF 0 % (0); RBC 1 /mm3 (0-5)
[2023-01-27] MEDS: Enoxaparin 40 MG/0.4 ML SYR SC (21:11)
[2023-01-28] VITALS (8 sets, daily range): BP systolic 109–144; BP diastolic 62–82; PULSE 39–75; RESP 16–18; TEMP 35.7–36.9; O2SAT 96–98
[2023-01-28 08:24] LABS: ALT 36 U/L (14-59); AST 21 U/L (15-37); Albumin 3.2 g/dL (3.4-5.0); Alkaline Phosphatase 73 U/L (46-116); Anion Gap 5.6 mmol/L (3-11); BUN 13 mg/dL (7-18); Bilirubin, Total 0.4 mg/dL (0.2-1.0); CO2 27.4 mmol/L (21.0-32.0); CREATININE 0.9 mg/dL (0.55-1.02); Calcium 8.8 mg/dL (8.5-10.1); Chloride 109 mmol/L (98-107); Estimated GFR 75.03 (mL/min/1.73m2); Glucose 100 mg/dL (74-106); Magnesium 2.1 mg/dL (1.8-2.4); Potassium 3.9 mmol/L (3.5-5.1); Sodium 142 mmol/L (136-145); Total Protein 6.9 g/dL (6.4-8.2)
[2023-01-28] MEDS: Metoprolol 25 MG TAB PO ×3 (10:13→19:46)
[2023-01-28] MEDS: Levothyroxine 112 MCG TAB PO (10:14)
[2023-01-28] MEDS: Acetaminophen 325 MG TAB PO ×2 (10:14→19:46)
--- NOTE | 2023-01-28 10:40 | NUR.NOTE ---
Nursing Note: Accessed pt chart to obtain diagnosis for cytology orders.
[2023-01-28 11:08] LABS: HCT 36.2 % (36.0-46.0); HGB 12.3 g/dL (11.2-15.7); MCH 29.9 pg (27.0-33.0); MCV 88 fL (80-95); MPV 9.5 fL (8.0-11.0); Platelet Count 411 10^3/uL (130-400); RBC 4.12 10^6/uL (3.93-5.22); RDW-SD 38.7 fL; WBC 7.74 10^3/uL (4.4-10.8)
--- NOTE | 2023-01-28 11:57 | PGE_ITS ---
Date of Service Date of service: 01/28/23 Time of Service: 12:30 Assessment and Plan Assessment and plan (1) Multiple cranial nerve palsies: Status: Acute Assessment and plan: #1. Ms. Sarabia was admitted with 1-2 days of neck stiffness and headache, waking up this am with R Ugarte's palsy (R CN VII) and then later today developing a left ptosis, notable for pupil involvement (L CN III). She has had intermittent L tongue deviation earlier (L CN XII) and sensory disturbance in the face and thus also possible bilateral CN V involvement. DDx for multiple cranial nerve palsies includes meningitis (particularly chronic meningitidies, Lyme, TB, syphilis, lymphoma/leukemia), vasculitis/mononeuropathy multiplex (Wegners, Sarcoid), and cavernous sinus thorombosis - the latter not fitting her clinical picture at this time. Given headache and neck stiffness, suspect a meningitis of which Lyme seems most likely, particularly that she has had improvement following initiation of antibiotic. Pending work-up: -Labs: MIGNON, EVANS, ANCA, CRP, TB, hepatitis panel, C3/C4, anti-GBM ab, RPR, HIV, Lyme/Tick panel -CSF cytology, VDRL, Lyme, TB, cx Given high likelihood of Lyme, continue treatment. Depending on if we call this acute or late neurological manifestations, treatment is different. Would defer to primary team, but IV ceftriaxone seems reasonable at this time. She will need lubricating eye drops to the right eye prn during the day. She will need to tape right eye shut when sleeping until she can fully close it. Lubricating gel HS. #2. Tremor. LUE, chronic x 2 years with more recent tremor in the LLE in the last 1 month or so. Will address as outpatient. She should follow-up in neurology clinic in 3-4 weeks. Please call with any further questions or concerns. Subjective Subjective Interval history since last seen: Started on ceftriaxone yesterday. Ptosis with significant improvement though still present. She had a ARAGON this am that resolved with APAP. Right eye dry/irritated - has not been using eye drops. Did tape eye shut last night. -MRI brain w/o with thin cuts (01/27/23): unremarkable. I reviewed these images personally and this is my personal interpretation. -LP (01/27/23): 0W/1R, 63 glucose, 59 protein; gram stain neg Exam Narrative Exam Narrative: Physical Exam: Constitutional: Patient of apparent stated age, well nourished, well developed, no acute distress Neuro: MS/Language/Speech: Alert, oriented, clear language (fluency and comprehension), no dysarthria CN: Mild L ptosis. L eye remains down but mainly in up and down gaze. Visual burns full. R LMN face weakness. Tongue protrudes to the left and then can bring it midline. Motor: Normal bulk and tone. FMM intact, no pronator drift. 5/5 strength in bilateral upper and lower extremities. Near constant RUE resting tremor - non pill rolling. Coordination: Finger to nose performed without dysmetria Objective Last Vital Signs Temp 98.4 F 01/28/23 11:31 Pulse 51 L 01/28/23 11:31 Resp 16 01/28/23 11:31 BP 125/81 01/28/23 11:31 Pulse Ox 97 01/28/23 11:31 Laboratory Results - last 24 hr 01/27/23 01/27/23 01/27/23 15:05 15:05 15:05 WBC 5.97 RBC 4.22 Hgb 12.7 Hct 37.0 MCV 88 MCH 30.1 MCHC 34.3 RDW 11.8 Plt Count 445 H MPV 9.4 Immature Gran % 0.3 Neutrophils % 65.2 Lymphocytes % 27.3 Monocytes % 5.9 Eosinophils % 0.8 Basophils % 0.5 Nucleated RBC % 0.0 Absolute Neutrophils 3.89 Absolute Lymphocytes 1.63 Absolute Monocytes 0.35 Absolute Eosinophils 0.05 Absolute Basophils 0.03 Xanthochromia ESR 12 Sodium 142 Potassium 3.7 Chloride 109 H Carbon Dioxide 26.4 Anion Gap 6.6 BUN 17 Creatinine 1.0 Est GFR (CKD-EPI 2020) 66.12 Glucose 127 H Calcium 8.8 Magnesium Total Bilirubin 0.3 AST 18 ALT 41 Alkaline Phosphatase 84 C-Reactive Protein 0.11 Total Protein 7.8 Albumin 3.7 TSH 6.23 H Free T4 0.95 CSF Tube Number CSF Color CSF Clarity CSF WBC CSF RBC CSF Neutrophils % CSF Lymphocytes % CSF Monos/Macrophage % CSF Other Cells % CSF Diff Comment CSF Glucose CSF Total Protein COVID-19 Source SARS-CoV-2 (PCR) 01/27/23 01/27/23 01/27/23 19:55 19:55 20:02 WBC RBC Hgb Hct MCV MCH MCHC RDW Plt Count MPV Immature Gran % Neutrophils % Lymphocytes % Monocytes % Eosinophils % Basophils % Nucleated RBC % Absolute Neutrophils Absolute Lymphocytes Absolute Monocytes Absolute Eosinophils Absolute Basophils Xanthochromia Absent ESR Sodium Potassium Chloride Carbon Dioxide Anion Gap BUN Creatinine Est GFR (CKD-EPI 2020) Glucose Calcium Magnesium Total Bilirubin AST ALT Alkaline Phosphatase C-Reactive Protein Total Protein Albumin TSH Free T4 CSF Tube Number 4 CSF Color Colorless CSF Clarity Clear CSF WBC 0 CSF RBC 1 CSF Neutrophils % 0 CSF Lymphocytes % 2 L CSF Monos/Macrophage % 0 L CSF Other Cells % 0 CSF Diff Comment Performed CSF Glucose 63 CSF Total Protein 59 H COVID-19 Source Nasal/Nares SARS-CoV-2 (PCR) Negative 01/28/23 01/28/23 06:05 06:05 WBC 7.74 RBC 4.12 Hgb 12.3 Hct 36.2 MCV 88 MCH 29.9 MCHC 34.0 RDW 12.0 Plt Count 411 H MPV 9.5 Immature Gran % Neutrophils % Lymphocytes % Monocytes % Eosinophils % Basophils % Nucleated RBC % Absolute Neutrophils Absolute Lymphocytes Absolute Monocytes Absolute Eosinophils Absolute Basophils Xanthochromia ESR Sodium 142 Potassium 3.9 Chloride 109 H Carbon Dioxide 27.4 Anion Gap 5.6 BUN 13 Creatinine 0.9 Est GFR (CKD-EPI 2020) 75.03 Glucose 100 Calcium 8.8 Magnesium 2.1 Total Bilirubin 0.4 AST 21 ALT 36 Alkaline Phosphatase 73 C-Reactive Protein Total Protein 6.9 Albumin 3.2 L TSH Free T4 CSF Tube Number CSF Color CSF Clarity CSF WBC CSF RBC CSF Neutrophils % CSF Lymphocytes % CSF Monos/Macrophage % CSF Other Cells % CSF Diff Comment CSF Glucose CSF Total Protein COVID-19 Source SARS-CoV-2 (PCR) Time Spent with Patient Time Spent with Patient: 25-34 minutes Time was spent: preparing to see the patient(eg.review tests), referring, communicating with other health field care coordinator, indepentently interpreting results and counseling the patient
[2023-01-28] MEDS: Refresh PLUS Eye Drops 0.4ml 1 EACH OU (16:22)
--- NOTE | 2023-01-28 16:49 | PDOC.CMIN ---
- If Service Date Differs Date of service: 01/28/23 Time of Service: 16:49 Care Management Initial Assess REASON FOR HOSPITALIZATION:: Acute Cranial Nerve Palsies PAST MEDICAL HISTORY/PAST SURGICAL HISTORY:: Adult hypothyroidism (Chronic). HTN (hypertension) (Chronic). Multiple cranial nerve palsies (Acute) PREVIOUS FUNCTIONAL STATUS/SOCIAL/FAMILY SUPPORTS:: Resides in [place], with Kelvin. CURRENT FUNCTIONAL STATUS:: Remains inpatient awaiting ID consult recommendations for ABX course per MD. ADVANCE DIRECTIVES:: None on file. Has patient been provided with info about the portal/API?: Yes Did the patient sign up for the portal?: No CODE STATUS:: Full Code INSURANCE COVERAGE / FINANCIAL ISSUES:: BC/BS Fed. BC/BS Out of State POTENTIAL DISCHARGE NEEDS:: Follow up appointments, abx course. PATIENT/FAMILY EDUCATION NEEDS:: Review discharge instructions, discuss Ask Me Three. ANTICIPATED BARRIERS TO DISCHARGE:: None identifed. TRANSPORTATION:: Via private vehicle with significant other. PLAN:: Shyann will return home when ready per MD. She will follow up with her PCP and plan of care as prescribed. She will transport via private vehicle with her .
--- NOTE | 2023-01-28 18:25 | W.PM.PROGNOT ---
Date of Service Date of service: 01/28/23 Time of Service: 18:25 Assessment and Plan Assessment and plan (1) Multiple cranial nerve palsies: Status: Acute Assessment and plan: R Ugarte's palsy (R CN VII). L ptosis (L CN III). Tongue deviation to left (CN XII). Previous sensory disturbance of face that would indicate CN V involvement. Working dx of Lyme, but also ruling out TB, syphilis, lymphoma, vasculitis multiplex (Wegners, Sarcoid. LP cell count unremarkable. CSF VDRL, tick borne panel pending. Serology tick borne panel, syphilis, HIV, TB testing pending. On Rocephin in event this is a latent manifestation of Lyme. Last known imbedded tick was last summer when no not sequela was noted. Call has been placed for ID consult at [facility] Lubricating eye drops prn to R eye. Tape eye shut at night. Subjective Subjective Patient reports: no new complaints, tolerating a regular diet and afebrile; denies nausea, vomiting or shortness of breath Interval history since last seen: Right eye feels scratchy. Exam Narrative Exam Narrative: General: Pleasant and cooperative. HEENT: L eye with mild ptosis. Sclera clear. . Lungs: Clear. Nonlabored breathing. Heart: Regular rate and rhythm with no murmurs Abdomen: Obese contour, soft and nontender to palpation Extremity: No edema, joint swelling, calf tenderness. Skin: w/o rashes,lesions. Neuro: cranial nerve VII motor deficit which appears to be peripheral as Ugarte's palsy on the right. Tongue protrudes to the left initially then corrects to midline. Psych: Normal mood and affect. Objective Last Vital Signs Temp 36.8 C 01/28/23 15:16 Pulse 53 L 01/28/23 15:16 Resp 16 01/28/23 15:16 BP 109/62 01/28/23 15:16 Pulse Ox 97 01/28/23 15:16 Laboratory Results - last 24 hr 01/27/23 01/27/23 01/27/23 19:55 19:55 20:02 WBC RBC Hgb Hct MCV MCH MCHC RDW Plt Count MPV Xanthochromia Absent Sodium Potassium Chloride Carbon Dioxide Anion Gap BUN Creatinine Est GFR (CKD-EPI 2020) Glucose Calcium Magnesium Total Bilirubin AST ALT Alkaline Phosphatase Total Protein Albumin CSF Tube Number 4 CSF Color Colorless CSF Clarity Clear CSF WBC 0 CSF RBC 1 CSF Neutrophils % 0 CSF Lymphocytes % 2 L CSF Monos/Macrophage % 0 L CSF Other Cells % 0 CSF Diff Comment Performed CSF Glucose 63 CSF Total Protein 59 H COVID-19 Source Nasal/Nares SARS-CoV-2 (PCR) Negative 01/28/23 01/28/23 06:05 06:05 WBC 7.74 RBC 4.12 Hgb 12.3 Hct 36.2 MCV 88 MCH 29.9 MCHC 34.0 RDW 12.0 Plt Count 411 H MPV 9.5 Xanthochromia Sodium 142 Potassium 3.9 Chloride 109 H Carbon Dioxide 27.4 Anion Gap 5.6 BUN 13 Creatinine 0.9 Est GFR (CKD-EPI 2020) 75.03 Glucose 100 Calcium 8.8 Magnesium 2.1 Total Bilirubin 0.4 AST 21 ALT 36 Alkaline Phosphatase 73 Total Protein 6.9 Albumin 3.2 L CSF Tube Number CSF Color CSF Clarity CSF WBC CSF RBC CSF Neutrophils % CSF Lymphocytes % CSF Monos/Macrophage % CSF Other Cells % CSF Diff Comment CSF Glucose CSF Total Protein COVID-19 Source SARS-CoV-2 (PCR) Time Spent with Patient Time Spent with Patient: 25-34 minutes Time was spent: preparing to see the patient(eg.review tests), obtaining and/or reviewing separately otained hiistory, ordering medications,tests, procedures, referring, communicating with other health career services director and indepentently interpreting results
[2023-01-28] MEDS: cefTRIAXone 2 GM/50 ML BAG IVPB (18:45)
[2023-01-28] MEDS: Enoxaparin 40 MG/0.4 ML SYR SC (19:46)
[2023-01-28] MEDS: Omeprazole 20 MG CAPCR PO (21:19)
[2023-01-29] MEDS: Metoprolol 25 MG TAB PO ×2 (01:34→09:14)
[2023-01-29 01:42] VITALS: BP 130/80; PULSE 59; RESP 16; TEMP 36.7; O2SAT 96
[2023-01-29] MEDS: Levothyroxine 112 MCG TAB PO (06:09)
[2023-01-29 06:42] VITALS: BP 132/78; PULSE 57; RESP 16; TEMP 36.6; O2SAT 96
[2023-01-29] MEDS: Losartan 25 MG TAB PO (09:15)
[2023-01-29 09:48] LABS: C3 Complement 140 mg/dL (81-157); C4 Complement 30 mg/dL (13-39)
[2023-01-29 10:03] LABS: HIV-1/2 Ag & Ab Screen Negative (Negative)
--- NOTE | 2023-01-29 10:16 | DSE_ITS ---
Date of service: 01/29/23 Time of Service: 10:16 DS: Diagnosis Discharge Diagnosis (1) Multiple cranial nerve palsies: Status: Acute Asessment and Plan: Working dx of Lyme, but also ruling out TB, syphilis, lymphoma, vasculitis multiplex (Wegners, Sarcoid).? LP cell count unremarkable. CSF VDRL, tick borne panel pending. Serology tick borne panel, syphilis, HIV, TB testing pending. On Rocephin in event this is a latent manifestation of Lyme.? Last known imbedded tick was last summer when no not sequela was noted. Discussed with ID at [facility]. OK to change to doxycycline; will complete a 21 day course of antiobitics. PCP will need to follow up with lab that are still pending. Follow up with Dr Herrera in 3-4 weeks for a tremor. Discharge Plan Disposition Patient Disposition: Home Condition: Improving Discharge Details Reason For Visit: Acute Cranial Nerve Palsies Admit Date/Time: 01/27/23 18:50 Admit Provider: Stalin Juan Attending Provider: Stalin Juan Primary Care Provider: Unknown,Unknown Hospital Course Hospital Course: This is a 58-year-old female patient with a past history of hypertension and Graves' disease on thyroid supplementation who presented to the ED with a sudden onset of right facial drooping with her right eyelid not closing but her left eyelid not being able to open.? She states that she had no headache and she did attempt to go to work but continued to have symptoms prompting her to come to the ED for evaluation.? There is a family history of CVAs and the patient was evaluated in the ED by neurology who did a full evaluation.? See neurology consultation.? Patient also had a history of 1 week with her left hand having increased shaking and tongue numbness.? She had no other focal neurological complaints.? At the time I saw the patient was able to open her left eye but her right face had decreased wrinkling of her forehead with upper gaze and right eyelid would not closed with a eye patch along with a right facial droop Reviewing the neurology consultation note the patient did state that she had neck stiffness and headache for 1 to 2 days when interviewed by Dr. Herrera.? The did notice left ptosis with notable pupil involvement which revealed cranial nerve III and stated that there was also leftward deviation of the tongue which would be cranial nerve VII.? Her exam also involved facial sensory disturbance would be cranial nerve V. Patient was admitted for IV Rocephin treatment for possible Lyme disease while gathering further information with an LP performed by Dr. Del Angel prior to admission. See Diagnosis ? PCP follow up in 1 week Home Meds and New Rx's Prescriptions: New carboxymethylcellulose sodium [Refresh Plus] 0.5 % Dropperette 1 ea OU PRN PRNQty: 0 0RF doxycycline hyclate 100 mg capsule 100 mg PO BID Qty: 38 0RF Continued metoprolol succinate 100 mg tablet extended release 24 hr 100 mg PO DAILY Patient Comments: TAKE ONE TABLET BY MOUTH EVERY DAY losartan 25 mg tablet 25 mg PO DAILY Patient Comments: TAKE ONE TABLET BY MOUTH EVERY DAY omeprazole 20 mg capsule,delayed release(DR/EC) 20 mg PO HS Patient Comments: TAKE ONE CAPSULE BY MOUTH EVERY DAY THIRTY MINUTES BEFORE EATING levothyroxine 112 mcg tablet 112 mcg PO DAILY Patient Comments: TAKE ONE TABLET BY MOUTH EVERY DAY Discharge Instructions Activity:: Activity as Tolerated Equipment/Supplies:: No Equipment Needed Diet:: As Tolerated Discharge Orders Discharge Orders: Discharge Order (Routine); Ordered 01/29/23 Ordered By: Chin Shaffer DS: Summary Time Spent with Patient providing and/or coordinating discharge services: Greater than 30 minutes Status at Discharge Functional status at discharge: independent ambulation Overall status at discharge: patient is progressing back to baseline Mental Status: mental status grossly normal Speech and Movement: speech and movement normal Mood: congruent mood Affect: normal affect Exam Narrative Exam Narrative: General: Pleasant and cooperative. HEENT: L eye with mild ptosis. Sclera clear. . Lungs: Clear. Nonlabored breathing. Heart: Regular rate and rhythm with no murmurs Abdomen: Obese contour, soft and nontender to palpation Extremity: No edema, joint swelling, calf tenderness. Skin: w/o rashes,lesions. Neuro: cranial nerve VII motor deficit which appears to be peripheral as Ugarte's palsy on the right. Tongue protrudes to the left initially then corrects to midline. Psych: Normal mood and affect. Psych Mental Status: mental status grossly normal Speech and Movement: speech and movement normal Mood: congruent mood Affect: normal affect DS: Data Vitals/I&O Vitals and I&O: Vital Signs Temperature 36.6 C 01/29/23 06:42 Temperature Source Tympanic 01/29/23 06:42 Pulse 57 L 01/29/23 06:42 Pulse Rhythm Regular 01/29/23 01:45 Pulse 67 01/27/23 15:20 Respiratory Rate 16 01/29/23 06:42 Respiratory Effort Normal, Non-Labored 01/29/23 01:45 Respiratory Depth Normal 01/29/23 01:45 Respiratory Pattern Normal 01/29/23 01:45 Blood Pressure 132/78 01/29/23 06:42 Blood Pressure Mean 100 01/27/23 19:57 Blood Pressure Position Sitting 01/27/23 14:59 Pulse Oximetry 96 01/29/23 06:42 Oxygen Delivery Method Room Air 01/29/23 06:42 Oxygen Flow Rate 0 01/29/23 06:42 Pain Level 0 01/29/23 06:42 Intake & Output 01/28/23 01/28/23 01/29/23 11:59 23:59 11:59 Intake Total 790 / 790 Balance 790 / 790 Weight 74.5 kg Intake: IV 50 / 50 Oral 740 / 740 Other: Urine Appearance Clear Comment Pt up ad hayden to bathroom to void. Pt reports void x4 tonight. Voiding Methods Toilet Toilet Data Completed and Pending Labs on day of discharge: Labs from last 24 hours 01/28/23 01/28/23 01/27/23 06:05 06:05 19:55 WBC 7.74 RBC 4.12 Hgb 12.3 Hct 36.2 MCV 88 MCH 29.9 MCHC 34.0 RDW 12.0 Plt Count 411 H MPV 9.5 Sodium 142 Potassium 3.9 Chloride 109 H Carbon Dioxide 27.4 Anion Gap 5.6 BUN 13 Creatinine 0.9 Est GFR (CKD-EPI 2020) 75.03 Glucose 100 Calcium 8.8 Magnesium 2.1 Total Bilirubin 0.4 AST 21 ALT 36 Alkaline Phosphatase 73 Total Protein 6.9 Albumin 3.2 L Mycobacter DNA Source M.tuberculos Complex PCR Miscellaneous Test Pending 01/27/23 19:55 WBC RBC Hgb Hct MCV MCH MCHC RDW Plt Count MPV Sodium Potassium Chloride Carbon Dioxide Anion Gap BUN Creatinine Est GFR (CKD-EPI 2020) Glucose Calcium Magnesium Total Bilirubin AST ALT Alkaline Phosphatase Total Protein Albumin Mycobacter DNA Source Pending M.tuberculos Complex PCR Pending Miscellaneous Test 01/27/23 19:55 Cerebrospinal Fluid Body Fluid Culture - Pending Preliminary micro results at discharge 01/27/23 19:55 Body Fluid Culture - Pending Cerebrospinal Fluid PFSH All Active Problems Adult hypothyroidism (Chronic) HTN (hypertension) (Chronic) Multiple cranial nerve palsies (Acute) Social History Smoking/Tobacco Use Status: Never Smoking risk assessment performed?: Yes Alcohol Intake: never Substance use type: does not use Time Spent with Patient Time Spent with Patient: 45-69 minutes Time was spent: preparing to see the patient(eg.review tests), obtaining and/or reviewing separately otained hiistory, referring, communicating with other health care coordination manager, indepentently interpreting results, counseling the patient and care coordination
[2023-01-29 10:20] LABS: Hepatitis A Antibody IgM Negative (Negative); Hepatitis B Core Antibody Negative (Negative); Hepatitis B surface Ag Negative (Negative); Hepatitis C Ab w Rflx HCV PCR Negative (Negative)
[2023-01-29 10:25] LABS: Lyme Ab w Rflx to Lyme Confirm Negative (Negative)
[2023-01-29 11:23] LABS: Syphilis Serology (RPR) Negative (Negative)
[2023-01-29 12:39] LABS: TB Interpretation Negative (Negative); TB1 Ag minus Nil 0.01 IU/ml
--- NOTE | 2023-01-29 13:02 | PDOC.CMDIS ---
- If Service Date Differs Date of service: 01/29/23 Time of Service: 13:02 LACE Index Scoring Tool - Questions: Length of Stay (in days): 2 Acuity (Admit via E.D.?): Yes E.D. Visits: 1 - Answers: Total Score: 6 Risk of Readmission: Low Risk Care Management Discharge Reason for Hospitalization: Acute Cranial Nerve Palsies Discharge Plan: Shyann will return home when ready per MD. She will follow up with her PCP and plan of care as prescribed including abx course and outpatient appointments. She will transport via private vehicle with her . Patient/Family Education Needs: Review discharge instructions, discuss Ask Me Three. Per MD: Discussed with [place] [facility] Doxycycline; will complete a 21 day course of antiobitics. PCP will need to follow up with pending lab. Follow up with Dr Herrera in 3-4 weeks for a tremor.
[2023-01-29 15:36] LABS: ANA Interpretation Negative (Negative)
[2023-01-29 18:50] LABS: Myeloperoxidase Ab IgG <0.2 U; Proteinase 3 Ab (PR3) <0.2 U
[2023-01-29 21:13] LABS: Angiotensin Converting Enzyme 32 U/L (16 - 85)
[2023-01-30 17:07] LABS: Anaplasma phagocytophilum Negative (Negative); B. miyamotoi PCR Negative (Negative); Babesia divergens/MO-1 Negative (Negative); Babesia duncani Negative (Negative); Babesia microti Negative (Negative); Ehrlichia chaffeensis Negative (Negative); Ehrlichia ewingii/canis Negative (Negative); Ehrlichia muris eauclairensis Negative (Negative)
[2023-02-01 00:07] LABS: Result Negative; Specimen Source CSF
[2023-02-01 14:50] LABS: VDRL, CSF Negative (Negative)
[2023-02-15 09:25] LABS: Glomerular Basement Membr Ab <0.2 U
[2023-02-15 09:27] LABS: Specimen Source CSF
== END 2023-01-29 11:40 | disposition home or self-care (01) | DRG 869 ==
LOC: ER 19:30 → MS 20:22
PROVIDERS: Student in an Organized Health Care Education/Training Program; Admitting Provider Family Medicine; Emergency Provider Student in an Organized Health Care Education/Training Program; PCP Physician Assistant; Visit Provider Family Medicine
DX: A69.22 Other neurologic disorders in Lyme disease (principal); G51.0 Bell's palsy; H49.02 Third [oculomotor] nerve palsy, left eye; G50.8 Other disorders of trigeminal nerve; I10 Essential (primary) hypertension; E89.0 Postprocedural hypothyroidism; R51.9 Headache, unspecified; E78.5 Hyperlipidemia, unspecified; K21.9 Gastro-esophageal reflux disease without esophagitis; R25.1 Tremor, unspecified; Z82.3 Family history of stroke; H02.402 Unspecified ptosis of left eyelid
CPT/HCPCS: 36415; 70496; 70498; 80053; 82164; 82945; 85027; 85652; 86704; 86709; 86803; 87340; 87389; 87635; 87798; 89050; 89051; 93005; 96361; 96374; 99285; J1650; 70551; 83516; 83520; 83735; 84157; 84439; 84443; 85025; 86038; 86140; 86160; 86480; 86592; 86618; 87070; 87205; 87476; 87556; 88104; 93010; 99223; 99232; 99239; J2060

== ENCOUNTER 2023-02-04 03:09 | Outpatient (CLI) | payer BC, SELFPAY ==
--- NOTE | 2023-02-04 09:12 | DI.US_ITS ---
APPROVED REPORT EXAM: Comprehensive 2D, Doppler, and color-flow Echocardiogram Patient Location: Out-Patient Theatrical Dresser: Sophia Monroe RDCS (AE) Indications: Abnormal EKG, HTN Other Information Study Quality: Adequate Conclusion Normal left ventricular wall thickness and chamber size. Ejection fraction is 55 to 60%. Wall motio n is normal Normal right ventricular size and systolic function Both atria are normal in size There is no structural or hemodynamically significant valvular disease Mildly dilated ascending aorta measuring 3.4 cm Wall motion Left Ventricle The left ventricle is normal size. The left ventricular systolic function is normal. The left ventric ular ejection fraction is within the normal range. There is normal left ventricular wall thickness. T here is normal LV segmental wall motion. There is no ventricular septal defect visualized. LVEF is 5 5-60%. Right Ventricle Right ventricle is grossly normal in size. Right ventricular systolic function is grossly normal. Th e RVSP is 19.5 mmHg. Atria The left atrium size is normal. The right atrium size is normal. The interatrial septum is intact wit h no evidence for an atrial septal defect. Aortic Valve The aortic valve is normal in structure. Aortic valve is trileaflet. There is no aortic valvular sten osis. No aortic regurgitation is present. Mitral Valve The mitral valve is normal in structure. No evidence of mitral valve stenosis. Mild mitral regurgita tion. Tricuspid Valve The tricuspid valve is normal in structure. There is no tricuspid valve stenosis. Mild tricuspid regu rgitation. Pulmonic Valve The pulmonary valve is normal in structure. There is no pulmonic valvular stenosis. Trace pulmonic re gurgitation. Great Vessels The aortic root is normal in size. The ascending aorta is mildly dilated. Aortic arch is normal in c aliber. IVC is normal in size and collapses >50% with inspiration. 2D Dimensions IVSD d PLAX 0.92 cm F: 0.6-1.0 LV Vol A2C d MOD 116.8 mL LVPW d PLAX 0.95 cm F: 0.6 - 1.0 LV Vol A4C d MOD 99.4 mL LVID d PLAX 4.75 cm F: 3.8 - 5.2 LA vol/ BSA A2C s A-L 38.6 mL/m2 LVDs 3.30 cm F: 2.2 - 3.5 LA vol/ BSA A4C s A-L 25.2 mL/m2 Ao Root d 3.10 cm F: 2.7 - 3.3 LA Vol/ BSA Biplane s A-L 32.0 mL/m2 Ao Asc Diam d 3.40 cm F: 2.3 - 3.1 LA Area A4C s MOD 15.86 cm2 LV EF Teichholz 57.3 % LA Area A2C s MOD 20.18 cm2 LVEF (Helms's) 55.54 % F: 54 - 74 LV EF A4C MOD 55.8 % LV Volume 85.01 mL F: 46 - 106 LV EF A2C MOD 55.8 % LV Volume Index 48.85 mL/m2 F: 29 - 61 LV EF Biplane MOD 55.5 % LV Vol Biplane MOD 107.9 mL SV 59.95 mL FS 30.05 % SV Index 34.48 mL/m2 M-Mode TAPSE 2.39 cm (M/F) >1.7 LV Diastology MV E' medial 0.065 (>0.07 m/s) E/A Ratio 1.5 LV E/e MED 10.55 (<14) MV E Vmax 0.69 (0.4-1.3 m/s) MV E' lateral 0.096 (>0.1 m/s) MV A Vmax 0.45 (0.4-1.3 m/s) LV E/e LAT 7.15 (<14) MV E/A Ratio 1.39 MV E/E' medial 10.59 MV E/E' lateral 7.18 Aortic Valve LVOT Area 3.20 cm2 AoV Area Vmax 2.20 cm2 LVOT Vmax 0.78 m/s AoV Area/ BSA (Vmax) 1.27 cm2/m2 LVOT Mean Yariel. 0.49 m/s BETTY Mean Yariel. 1.99 cm2 LVOT Peak Grad 2.4 mmHg BETTY Mean Yariel. Index 1.14 cm2/m2 LVOT Mean Grad 1.2 mmHg LVOT VTI 0.217 m LVOT Diam s 2.00 cm AoV Vmax 1.13 m/s Velocity Ratio 0.69 AoV Mean Yariel. 0.79 m/s AoV Peak Grad 5.1 mmHg LVOT SV 69.52 mL AoV Mean Grad 2.7 mmHg AoV VTI 0.285 m AoV Area VTI 2.44 cm2 AoV Area/ BSA (VTI) 1.41 cm/m2 Mitral Valve MV DT 203 (160-240 msec) MV PHT 59 msec MV Area PHT 3.74 cm2 Pulmonary Valve PV Vmax 0.68 (0.5-1.5 m/s) RVOT Peak Gr. 0.81 mmHg PV Peak Grad 1.8 mmHg RVOT Mean Gr. 0.45 mmHg PV Mean Grad 1.0 mmHg RVOT VTI 0.132 m PV VTI 0.176 m RVOT Vmax 0.45 m/s Tricuspid Valve TR Peak Grad 16.5 mmHg TR Vmax 2.03 m/s RA Pressure 3.00 mmHg RVSP (TR) 19.5 mmHg
== END 2023-02-04 03:29 ==
PROVIDERS: Visit Provider Family Medicine
DX: R94.31 Abnormal electrocardiogram [ECG] [EKG] (principal); I10 Essential (primary) hypertension
CPT/HCPCS: 93306

== ENCOUNTER 2023-02-18 01:50 | Outpatient (CLI) | payer BC, SELFPAY ==
[2023-02-18 09:45] LABS: Vitamin B12 425 pg/mL (193-986)
[2023-02-19 12:10] LABS: Lyme Ab w Rflx to Lyme Confirm Negative (Negative)
[2023-02-19 13:32] LABS: Albumin 57.9 % (55.8-66.1); Albumin g/dL 4.2 g/dL (3.6-5.2); Comment (See Note); Total Protein 7.3 g/dL (6.3-8.2)
[2023-02-19 14:28] LABS: Immunotyping, Serum (See Note)
[2023-02-19 15:52] LABS: RNP Ab, IgG 1.5 Units (<20.0); SS-A Antibody 1.4 Units (<20.0); Sm (Smith) Ab, IgG 2.5 Units (<20.0)
[2023-02-19 15:56] LABS: Myeloperoxidase Ab IgG <0.2 U; Proteinase 3 Ab (PR3) <0.2 U
[2023-02-24 11:41] LABS: AGNA-1 Negative (Negative); ANNA-1 Negative (Negative); ANNA-2 Negative (Negative); ANNA-3 Negative (Negative); IFA Notes None.; PCA-1 Negative (Negative); PCA-2 Negative (Negative); PCA-Tr Negative (Negative)
== END 2023-02-18 01:51 | disposition home or self-care (01) ==
LOC: LBO 01:50
PROVIDERS: PCP Physician Assistant; Visit Provider Psychiatry & Neurology Neurology
DX: G52.7 Disorders of multiple cranial nerves; M05.50 Rheumatoid polyneuropathy with rheumatoid arthritis of unspecified site
CPT/HCPCS: 36415; 83519; 86255; 82607; 83516; 83520; 84165; 86235; 86256; 86320; 86618

== ENCOUNTER 2025-05-11 16:39 | Outpatient (REF) | payer BC, SELFPAY ==
[2025-05-11 19:11] LABS: Abs Immature Grans 0.03 10^3/uL (0.0-0.06); HCT 35.8 % (36.0-46.0); HGB 12.3 g/dL (11.2-15.7); Immature Grans % 0.5 %; MCH 30.5 pg (27.0-33.0); MCHC 34.4 % (32.0-36.0); MCV 89 fL (80-95); MPV 10.1 fL (8.0-11.0); Platelet Count 367 10^3/uL (130-400); RBC 4.03 10^6/uL (3.93-5.22); RDW 11.9 % (11.7-14.6); RDW-SD 38.0 fL; WBC 5.89 10^3/uL (4.4-10.8)
[2025-05-11 19:29] LABS: ALT 33 U/L (14-59); AST 23 U/L (15-37); Albumin 3.9 g/dL (3.4-5.0); Alkaline Phosphatase 75 U/L (46-116); Anion Gap 8.0 mmol/L (3-11); BUN 22 mg/dL (7-18); Bilirubin, Total 0.5 mg/dL (0.2-1.0); CO2 26.0 mmol/L (21.0-32.0); Calcium 9.1 mg/dL (8.5-10.1); Chloride 106 mmol/L (98-107); Estimated GFR 65.30 (mL/min/1.73m2); Glucose 95 mg/dL (74-106); LDL CHOLESTEROL 182 mg/dL (<100); Potassium 4.2 mmol/L (3.5-5.1); Sodium 140 mmol/L (136-145); TSH (W/Ref FT4) 4.23 uIU/mL (0.36-3.74); Total Protein 7.5 g/dL (6.4-8.2)
== END 2025-05-11 16:40 | disposition home or self-care (01) ==
LOC: NCHCN 16:39
PROVIDERS: PCP Physician Assistant; Visit Provider Physician Assistant
DX: I10 Essential (primary) hypertension (principal); E03.9 Hypothyroidism, unspecified; E78.5 Hyperlipidemia, unspecified
CPT/HCPCS: 80053; 83721; 84439; 84443; 85025

== ENCOUNTER 2025-07-06 10:43 | Outpatient (REF) | payer BC, SELFPAY ==
[2025-07-06 19:41] LABS: TSH (W/Ref FT4) 0.83 uIU/mL (0.36-3.74)
== END 2025-07-06 10:44 | disposition home or self-care (01) ==
LOC: NCHCN 10:43
PROVIDERS: PCP Physician Assistant; Visit Provider Physician Assistant
DX: E03.9 Hypothyroidism, unspecified (principal)
CPT/HCPCS: 84443